=== PATIENT | male | born 1980 | race Caucasian/White ===

== ENCOUNTER 2022-10-13 14:11 | Emergency (ER) | payer OTHER ==
[~2022-10-13] VITALS: Ht 182.9 cm; Wt 87.3 kg
[2022-10-13 14:52] VITALS: TEMP 98
[2022-10-13] MEDS ORDERED: IBUPROFEN 600 MG TABLET PO ONE (15:30)
[2022-10-13 18:27] VITALS: BP 126/74; PULSE 66; RESP 16
== END 2022-10-13 19:29 | disposition home or self-care (01) ==
LOC: EMS 14:11
DX: S70.01XA Contusion of right hip, initial encounter (principal); S93.401A Sprain of unspecified ligament of right ankle, initial encounter; Z98.890 Other specified postprocedural states; W01.0XXA Fall on same level from slipping, tripping and stumbling without subsequent striking against object, initial encounter; Y93.89 Activity, other specified; Y92.89 Other specified places as the place of occurrence of the external cause; Y99.8 Other external cause status
CPT/HCPCS: 73502; 73552; 99284